=== PATIENT | female | born 1955 | race Caucasian/White ===

== ENCOUNTER 2024-10-12 12:47 | Emergency (ER) | payer OTHER, SELFPAY ==
[2024-10-12] VITALS (16 sets, daily range): BP systolic 102–139; BP diastolic 59–75; PULSE 48–72; RESP 12–23; TEMP 36.1; O2SAT 97–100; BMI 22.0
--- NOTE | 2024-10-12 13:12 | DI.RAD.S_ITS ---
PROCEDURE: XR CHEST 1V INDICATIONS: chest pain TECHNIQUE: One view of the chest was acquired. COMPARISON: None. FINDINGS: Surgical changes and devices: None. Lungs and pleura: Lungs are clear. No pleural effusions or pneumothorax. Mediastinum: Mediastinal contours appear normal. Heart size is normal. Bones and chest wall: No suspicious bony lesions. Overlying soft tissues appear unremarkable. IMPRESSION: No acute cardiopulmonary abnormality is seen. Dictated by: Mckinley Magaña M.D. on 10/12/2024 at 13:33 Approved by: Mckinley Magaña M.D. on 10/12/2024 at 13:33
[2024-10-12 13:29] LABS: Prothrombin Time 11.2 SECONDS (9.4-12.5)
--- NOTE | 2024-10-12 13:30 | EKG_ITS ---
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
[2024-10-12 13:31] LABS: PTT Partial Thromboplastin Tim 28 SECONDS (25.1-36.5)
[2024-10-12 13:32] LABS: Add Manual Diff / Slide Review NO; Alanine Aminotransferase 24 IU/L (<35); Albumin 4.5 g/dL (3.5-5.0); Albumin Globulin Ratio 1.5 (1.0-2.8); Alkaline Phosphatase 86 U/L (38-126); Aspartate Aminotransferase 44 IU/L (14-36); Basophils Absolute Auto 0 /uL (0-100); Basophils Percent Auto 0.5 % (0-2); Bilirubin Total 0.6 mg/dL (0.2-1.3); Blood Urea Nitrogen 20 mg/dL (7-17); Calcium 9.7 mg/dL (8.4-10.2); Carbon Dioxide 26 mmol/L (22-32); Chloride 104 mmol/L (98-107); Creatine Kinase 45 U/L (30-135); Eosinophils Absolute Auto 100 /uL (0-450); Estimated Glomerular Filt Rate 57 mL/min (>60); Globulin 3.1 g/dL (1.7-4.1); Glucose 121 mg/dL (80-110); HEMOLYSIS 19 (0-50); Hemoglobin 13.7 g/dL (12.0-16.0); Lymphocytes Absolute Auto 3200 /uL (1100-4500); Lymphocytes Percent Auto 52.8 % (25-40); Mean Corpuscular HGB Conc 33.3 % (30-36); Mean Corpuscular Hemoglobin 31.2 PG (26-34); Mean Corpuscular Volume 93.6 fL (80-100); Monocytes Absolute Auto 600 /uL (0-900); Monocytes Percent Auto 9.3 % (3-14); Neutrophils Absolute Auto 2100 /uL (1500-7000); Neutrophils Percent Auto 35.4 % (50-75); Platelet Count 332 X10^3/uL (150-400); Red Blood Cell Count 4.38 X10^6/uL (4.0-5.2); Red Cell Distribution Width 13.6 % (11.6-14.8); Sodium 138 mmol/L (137-145); Total Protein 7.6 g/dL (6.3-8.2); White Blood Cell Count 6.1 X10^3/uL (4.5-11.0)
[2024-10-12 13:34] LABS: Lipase 100 U/L (23-300); Magnesium 2.3 mg/dL (1.6-2.3)
[2024-10-12 13:44] LABS: NT-proBNP (BNP-Adult 18+) 132 pg/mL (<125); Troponin I < 0.012 ng/mL (0.01-0.034)
--- NOTE | 2024-10-12 13:56 | ED.SYNCOPE ---
HPI - Syncope General Chief Complaint: Syncope Stated Complaint: Syncope Time Seen by Provider: 10/12/24 13:36 Source: EMS Mode of arrival: EMS Limitations: no limitations History of Present Illness HPI narrative: patient here for syncopal episode. Brought in by ambulance from veterinary office. Patient states she did eat this morning. However, she states she does get queasy or lightheaded when she watches medical procedures. Similar episode with another dog in the past. Today she was trying to hold her dog during skin tag removal, she felt very hot and flushed. She did not fall down. She states the staff placed her in a chair. She awoke with him holding her head. Denies any pain. Denies any prevent headache chest pain abdominal pain back pain confusion. Denies any history of heart attack strokes or diabetes. No history of arrhythmia. Review of Systems Review of Systems Narrative: GENERAL: Negative chills, fatigue, malaise, fever, sweats. HEENT: Negative sinus pain, ear pain, sore throat RESPIRATORY: Negative dyspnea, cough CARDIOVASCULAR: Negative chest pain, palpitations , positive syncope GASTROINTESTINAL: Negative nausea, vomiting, abdominal pain : Negative dysuria, frequency, hematuria MUSCULOSKELETAL: Negative muscle or bony pain SKIN: Negative rash, skin lesions NEUROLOGIC: Negative weakness, numbness ROS Unobtainable: All systems reviewed & are unremarkable except as noted in HPI and below Patient History Social History Smoking Status: Unknown if ever smoked Smoking Status: Unknown if ever smoked Substance Use Type: does not use Exam Narrative Exam Narrative: GENERAL: in no distress, not toxic not dyspneic HEAD: Normocephalic. EYES: Pupils equal round ENT: Mucous membranes moist. NECK: Trachea midline. CARDIOVASCULAR: Regular rate and rhythm . Orthostatics were done and normal. RESPIRATORY: Clear to auscultation. Breath sounds equal bilaterally. No wheezes, rales, or rhonchi. GASTROINTESTINAL: Abdomen soft, non-tender EXTREMITIES: No gross deformities. BACK: No flank tenderness. NEURO: AOx4. SKIN: Warm and dry PSYCH: Not anxious, is cooperative Initial Vital Signs Initial Vital Signs: Vital Signs Temperature 97.0 F L 10/12/24 13:00 Pulse Rate 51 L 10/12/24 13:00 Respiratory Rate 12 10/12/24 13:00 Blood Pressure 102/59 L 10/12/24 13:00 Pulse Oximetry 98 10/12/24 13:00 Oxygen Delivery Method Room Air 10/12/24 13:00 Course Orders Ordered: Discontinued Medications Aspirin (Aspirin 81 Mg Chew Tab) 324 mg PO NOW ONE Stop: 10/12/24 13:13 Last Admin: 10/12/24 13:56 Dose: Not Given Documented By: JUNE Vital Signs Vital signs: Vital Signs - 8 hr 10/12/24 13:00 10/12/24 13:15 10/12/24 13:17 Temperature 97.0 F L Pulse Rate 51 L 50 L 50 L Pulse Rate [Orthostatic Lying] Pulse Rate [Orthostatic Sitting] Pulse Rate [Orthostatic Standing] Respiratory Rate 12 18 16 Blood Pressure 102/59 L Blood Pressure [Orthostatic Lying] Blood Pressure [Orthostatic Sitting] Blood Pressure [Orthostatic Standing] Pulse Oximetry 98 100 100 Oxygen Delivery Method Room Air 10/12/24 13:17 10/12/24 13:23 10/12/24 13:23 Temperature Pulse Rate 49 L Pulse Rate [Orthostatic Lying] Pulse Rate [Orthostatic Sitting] Pulse Rate [Orthostatic Standing] Respiratory Rate 15 Blood Pressure 107/64 106/64 Blood Pressure [Orthostatic Lying] Blood Pressure [Orthostatic Sitting] Blood Pressure [Orthostatic Standing] Pulse Oximetry 100 Oxygen Delivery Method 10/12/24 13:30 10/12/24 13:30 10/12/24 13:45 Temperature Pulse Rate 48 L 52 L Pulse Rate [Orthostatic Lying] Pulse Rate [Orthostatic Sitting] Pulse Rate [Orthostatic Standing] Respiratory Rate 23 Blood Pressure 116/62 Blood Pressure [Orthostatic Lying] Blood Pressure [Orthostatic Sitting] Blood Pressure [Orthostatic Standing] Pulse Oximetry 100 98 Oxygen Delivery Method 10/12/24 13:45 10/12/24 14:06 10/12/24 14:28 Temperature Pulse Rate 58 L 59 L Pulse Rate [Orthostatic Lying] Pulse Rate [Orthostatic Sitting] Pulse Rate [Orthostatic Standing] Respiratory Rate 15 19 Blood Pressure 115/67 Blood Pressure [Orthostatic Lying] Blood Pressure [Orthostatic Sitting] Blood Pressure [Orthostatic Standing] Pulse Oximetry 97 100 Oxygen Delivery Method 10/12/24 14:28 10/12/24 14:40 10/12/24 14:41 Temperature Pulse Rate 63 Pulse Rate [Orthostatic Lying] 72 Pulse Rate [Orthostatic Sitting] 63 Pulse Rate [Orthostatic Standing] 60 Respiratory Rate 20 Blood Pressure 130/67 Blood Pressure [Orthostatic Lying] 135/72 Blood Pressure [Orthostatic Sitting] 120/68 Blood Pressure [Orthostatic Standing] 139/65 Pulse Oximetry 100 Oxygen Delivery Method 10/12/24 14:41 10/12/24 14:45 10/12/24 14:45 Temperature Pulse Rate 62 Pulse Rate [Orthostatic Lying] Pulse Rate [Orthostatic Sitting] Pulse Rate [Orthostatic Standing] Respiratory Rate 15 Blood Pressure 135/75 128/72 Blood Pressure [Orthostatic Lying] Blood Pressure [Orthostatic Sitting] Blood Pressure [Orthostatic Standing] Pulse Oximetry 100 Oxygen Delivery Method 10/12/24 15:00 10/12/24 15:31 10/12/24 15:31 Temperature Pulse Rate 67 62 Pulse Rate [Orthostatic Lying] Pulse Rate [Orthostatic Sitting] Pulse Rate [Orthostatic Standing] Respiratory Rate 16 16 Blood Pressure 131/71 Blood Pressure [Orthostatic Lying] Blood Pressure [Orthostatic Sitting] Blood Pressure [Orthostatic Standing] Pulse Oximetry 100 100 Oxygen Delivery Method 10/12/24 15:45 10/12/24 15:45 Temperature Pulse Rate 61 Pulse Rate [Orthostatic Lying] Pulse Rate [Orthostatic Sitting] Pulse Rate [Orthostatic Standing] Respiratory Rate 19 Blood Pressure 123/72 Blood Pressure [Orthostatic Lying] Blood Pressure [Orthostatic Sitting] Blood Pressure [Orthostatic Standing] Pulse Oximetry 99 Oxygen Delivery Method MDM - Syncope Lab Data 10/12/24 12:56 10/12/24 12:56 Labs: Lab Results 10/12/24 Range/Units 12:56 WBC 6.1 (4.5-11.0) X10^3/uL RBC 4.38 (4.0-5.2) X10^6/uL Hgb 13.7 (12.0-16.0) g/dL Hct 41.0 (36-46) % MCV 93.6 (80-100) fL MCH 31.2 (26-34) PG MCHC 33.3 (30-36) % RDW 13.6 (11.6-14.8) % Plt Count 332 (150-400) X10^3/uL Neut % (Auto) 35.4 L (50-75) % Lymph % (Auto) 52.8 H (25-40) % Republic % (Auto) 9.3 (3-14) % Eos % (Auto) 2.0 (2-4) % Baso % (Auto) 0.5 (0-2) % Neut # (Auto) 2100 (2613-1810) /uL Lymph # (Auto) 3200 (0226-6922) /uL [place] # (Auto) 600 (0-900) /uL Eos # (Auto) 100 (0-450) /uL Baso # (Auto) 0 (0-100) /uL PT 11.2 (9.4-12.5) SECONDS INR 1.0 (0.9-1.3) APTT 28 (25.1-36.5) SECONDS Sodium 138 (137-145) mmol/L Potassium 4.0 (3.4-5.1) mmol/L Chloride 104 (98-107) mmol/L Carbon Dioxide 26 (22-32) mmol/L BUN 20 H (7-17) mg/dL Creatinine 1.05 H (0.52-1.04) mg/dL Estimated GFR 57 L (>60) mL/min BUN/Creatinine Ratio 19.0 (6-22) Glucose 121 H (80-110) mg/dL Calcium 9.7 (8.4-10.2) mg/dL Magnesium 2.3 (1.6-2.3) mg/dL Total Bilirubin 0.6 (0.2-1.3) mg/dL AST 44 H (14-36) IU/L ALT 24 (<35) IU/L Alkaline Phosphatase 86 (38-126) U/L Total Creatine Kinase 45 (30-135) U/L Troponin I < 0.012 (0.01-0.034) ng/mL NT-Pro-B Natriuret Pep 132 H (<125) pg/mL Total Protein 7.6 (6.3-8.2) g/dL Albumin 4.5 (3.5-5.0) g/dL Globulin 3.1 (1.7-4.1) g/dL Albumin/Globulin Ratio 1.5 (1.0-2.8) Lipase 100 (23-300) U/L Imaging Data Chest x-ray: Radiologist's Impression: [address] [address] XRay Report Signed Patient: Margie Abreu MR#: [id number] : 1955 Acct:[id number] Age/Sex: 68 / F Date of Service: 10/12/24 Loc: ED Accession Number: [id number] Procedure: XR chest 1V Ordering Provider: Nitish Delcid MD PROCEDURE: XR CHEST 1V INDICATIONS: chest pain TECHNIQUE: One view of the chest was acquired. COMPARISON: None. FINDINGS: Surgical changes and devices: None. Lungs and pleura: Lungs are clear. No pleural effusions or pneumothorax. Mediastinum: Mediastinal contours appear normal. Heart size is normal. Bones and chest wall: No suspicious bony lesions. Overlying soft tissues appear unremarkable. IMPRESSION: No acute cardiopulmonary abnormality is seen. Dictated by: Mckinley Magaña M.D. on 10/12/2024 at 13:33 Approved by: Mckinley Magaña M.D. on 10/12/2024 at 13:33 CT scan - head: Radiologist's Impression: [place] [address] CT Scan Report Signed Patient: Margie Abreu MR#: [id number] : 1955 Acct:[id number] Age/Sex: 68 / F Date of Service: 10/12/24 Loc: ED Accession Number: [id number] Procedure: CT head/brain wo con Ordering Provider: Nitish Delcid MD PROCEDURE: CT HEAD/BRAIN WO CON INDICATIONS: syncope TECHNIQUE: Noncontrast 4.5 mm thick angled axial sections acquired from the foramen magnum to the vertex, with coronal and sagittal reformats. For radiation dose reduction, the following was used: automated exposure control, adjustment of mA and/or kV according to patient size. COMPARISON: None. FINDINGS: Image quality: Diagnostic. CSF spaces: Basal cisterns are patent. No extra-axial fluid collections. The ventricles are symmetric in size and shape. Brain: No intracranial bleeds or masses. There is cerebral volume loss for age, with resultant ventricular and sulcal prominence. There are periventricular and deep white matter chronic small vessel ischemic changes. There is intracranial internal carotid artery atherosclerosis. Dense basilar tip (series 2, image 11). Skull and face: Calvarium and visualized facial bones appear intact, without suspicious lesions. Sinuses: Visualized sinuses and mastoids are clear. IMPRESSION: Dense basilar tip, which could indicate thrombosis or alternatively be related to underlying dehydration. Consider CTA for confirmation. Findings discussed with Dr. Delcid at 2:23 p.m. On 10/12/2024. Dictated by: Mckinley Magaña M.D. on 10/12/2024 at 14:20 Approved by: Mckinley Magaña M.D. on 10/12/2024 at 14:23 CTA - brain/neck: Radiologist's Impression: [address] [address] [address] Scan Report Signed Patient: Margie Abreu MR#: [id number] : 1955 Acct:[id number] Age/Sex: 68 / F Date of Service: 10/12/24 Loc: ED Accession Number: [id number] Procedure: CT angio head and neck Ordering Provider: Nitish Delcid MD PROCEDURE: CT ANGIO HEAD AND NECK INDICATIONS: syncope TECHNIQUE: After the administration of intravenous contrast, 1 mm thick sections acquired from the aortic arch through the [place]. 3-dimensional esniraw-esmdhxxmg-olacclzues (MIP) and/or volume rendering reformats were acquired of the central intracranial vasculature and neck separately. For radiation dose reduction, the following was used: automated exposure control, adjustment of mA and/or kV according to patient size. COMPARISON: [facility], CT, CT HEAD/BRAIN WO CON, 10/12/2024, 14:05. FINDINGS: Image quality: Diagnostic. BRAIN: Please refer to same day CT the head. HEAD CT ANGIOGRAPHY: Anterior circulation: Intracranial internal carotid arteries are normal in size and flow. The flow within the paired anterior cerebral arteries is normal and symmetric. The flow within the middle cerebral arteries is normal and symmetric. The anterior communicating artery is seen. No aneurysms are seen. Posterior circulation: Visualized portions of the vertebral arteries demonstrate normal caliber, and join to form a normal appearing basilar artery. 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 Flow within the posterior cerebral arteries is normal and symmetric. No aneurysms are seen. NECK CT ANGIOGRAPHY: Carotid system: The great vessels demonstrate a conventional anatomy as they arise from the aortic arch. The origins of the common carotid arteries appear patent. The common carotid arteries demonstrate normal caliber and courses. The bifurcation regions are both widely patent. The internal carotid arteries demonstrate normal calibers and courses. Posterior circulation: The origins of the vertebral arteries both appear widely patent. The more superior extracranial portions of both vertebral arteries also demonstrate normal courses and calibers. They join to form a normal appearing basilar artery. Soft tissues: Heterogeneous thyroid with multiple nodules measuring up to 3.5 centimeters. Visualized neck soft tissues demonstrate no suspicious abnormalities. Bones: No suspicious bony lesions. Visualized cervical spine appears normally aligned. Mild degenerative changes. IMPRESSION: No significant intracranial arterial abnormality is seen. No significant abnormality is seen within the arteries of the neck. Heterogeneous thyroid with nodules measuring up to 3.5 centimeters. Nonurgent dedicated thyroid ultrasound could be obtained for further evaluation as clinically indicated. Any quantitative measurements of stenosis were performed using NASCET criteria. Dictated by: Chandana Chi M.D. on 10/12/2024 at 15:02 Approved by: Chandana Chi M.D. on 10/12/2024 at 15:09 [facility] Narrative Medical decision making narrative: patient here for syncopal episode. Brought in by ambulance from veterinary office. Patient states she did eat this morning. However, she states she does get queasy or lightheaded when she watches medical procedures. Similar episode with another dog in the past. Today she was trying to hold her dog during skin tag removal, she felt very hot and flushed. She did not fall down. She states the staff placed her in a chair. She awoke with him holding her head. Denies any pain. Denies any prevent headache chest pain abdominal pain back pain confusion. Denies any history of heart attack strokes or diabetes. No history of arrhythmia. After history and exam CT head EKG CBC CMP troponin orthostatics [facility] Medical records reviewed: no recent visit for this complaint Differential considered: Includes but not limited to stroke vasovagal syncope dehydration arrhythmia Lab Test results independently reviewed as above. Pertinent findings: Independently reviewed EKG sinus rhythm bradycardia rate [address] elevation or depression Imaging studies independently reviewed: chest x-ray no acute finding CT head And CT angiogram head and neck no acute finding Consultations: none indicated at this time Treatments: EMS provided IV fluids. Aspirin given here. Re-evaluations: 4:25 p.m.. Patient remains asymptomatic since arrival. at bedside. Reviewed results with patient and . They are reassuring. Likely had vasovagal episode. She got very hot and warm before her syncopal episode. She was stationary holding her dog and dog was having procedure done which sometimes makes her queasy. Return precautions reviewed. Reviewed with her vasovagal syncope likely the source. She desires discharge home Discussion: appropriate for discharge home. Exam is reassuring. Return precautions reviewed with patient. Likely vasovagal syncope. I did review this with patient in description. She agrees. Return precautions reviewed. She desires discharge home. . Patient never had headache or dizziness before syncope. No chest pain back pain abdominal pain before syncope. No other images indicated. Diagnosis: vasovagal syncope Discharge Plan Departure Patient Disposition: Home Clinical Impression: Vasovagal syncope Instructions: DI for Syncope in Adults (Fainting) Activity Restrictions/Additional Instructions: Your exam and laboratory studies and imaging studies are reassuring. you will likely had a vasovagal syncope episode. see your family doctor this week for re-evaluation. Continue any home medications. Keep well hydrated. Return if worse if any questions or concerns. Referrals: Brandt Thomas DO [Primary Care Provider] - Stand Alone Forms: Patient Portal/API/Survey
--- NOTE | 2024-10-12 14:23 | DI.CT.S_ITS ---
PROCEDURE: CT ANGIO HEAD AND NECK INDICATIONS: syncope TECHNIQUE: After the administration of intravenous contrast, 1 mm thick sections acquired from the aortic arch through the [place]. 3-dimensional cewnfkt-ossdqoyct-nniijsotmt (MIP) and/or volume rendering reformats were acquired of the central intracranial vasculature and neck separately. For radiation dose reduction, the following was used: automated exposure control, adjustment of mA and/or kV according to patient size. COMPARISON: [facility], CT, CT HEAD/BRAIN WO CON, 10/12/2024, 14:05. FINDINGS: Image quality: Diagnostic. BRAIN: Please refer to same day CT the head. HEAD CT ANGIOGRAPHY: Anterior circulation: Intracranial internal carotid arteries are normal in size and flow. The flow within the paired anterior cerebral arteries is normal and symmetric. The flow within the middle cerebral arteries is normal and symmetric. The anterior communicating artery is seen. No aneurysms are seen. Posterior circulation: Visualized portions of the vertebral arteries demonstrate normal caliber, and join to form a normal appearing basilar artery. 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 Flow within the posterior cerebral arteries is normal and symmetric. No aneurysms are seen. NECK CT ANGIOGRAPHY: Carotid system: The great vessels demonstrate a conventional anatomy as they arise from the aortic arch. The origins of the common carotid arteries appear patent. The common carotid arteries demonstrate normal caliber and courses. The bifurcation regions are both widely patent. The internal carotid arteries demonstrate normal calibers and courses. Posterior circulation: The origins of the vertebral arteries both appear widely patent. The more superior extracranial portions of both vertebral arteries also demonstrate normal courses and calibers. They join to form a normal appearing basilar artery. Soft tissues: Heterogeneous thyroid with multiple nodules measuring up to 3.5 centimeters. Visualized neck soft tissues demonstrate no suspicious abnormalities. Bones: No suspicious bony lesions. Visualized cervical spine appears normally aligned. Mild degenerative changes. IMPRESSION: No significant intracranial arterial abnormality is seen. No significant abnormality is seen within the arteries of the neck. Heterogeneous thyroid with nodules measuring up to 3.5 centimeters. Nonurgent dedicated thyroid ultrasound could be obtained for further evaluation as clinically indicated. Any quantitative measurements of stenosis were performed using NASCET criteria. Dictated by: Chandana Chi M.D. on 10/12/2024 at 15:02 Approved by: Chandana Chi M.D. on 10/12/2024 at 15:09
--- NOTE | 2024-10-12 15:54 | PC.NURSE ---
Patient ambulated to the bathroom without assistance and reports only brief lightheadedness when standing but is normotensive when standing
== END 2024-10-12 16:36 | disposition home or self-care (01) ==
PROVIDERS: Emergency Provider Emergency Medicine; PCP Student in an Organized Health Care Education/Training Program
DX: R55 Syncope and collapse (principal); R07.9 Chest pain, unspecified; R00.1 Bradycardia, unspecified
CPT/HCPCS: 36415; 70450; 70496; 70498; 71045; 80053; 82550; 83690; 83735; 83880; 84484; 85025; 85610; 85730; 93005; 99284